=== PATIENT | male | born 1955 | race Caucasian/White ===

== ENCOUNTER 2021-12-03 08:00 | Outpatient (CLI) | payer MEDICARE, BC | END 2021-12-03 23:59 | disposition home or self-care (01) | LOC: LAB 08:00 | PROVIDERS: ATTEND Physician Assistant Medical | DX: J02.9 Acute pharyngitis, unspecified (principal); Z20.822 Contact with and (suspected) exposure to COVID-19 ==

== ENCOUNTER 2022-07-29 15:00 | Outpatient (CLI) | payer MEDICARE, BC | END 2022-07-29 15:01 | disposition home or self-care (01) | LOC: LAB.N 15:00 | PROVIDERS: ATTEND Urology | DX: R97.20 Elevated prostate specific antigen [PSA] (principal) | CPT/HCPCS: 36415; 84153 ==

== ENCOUNTER 2022-11-05 08:43 | Day surgery (SDC) | payer MEDICARE, BC ==
[2022-11-05] MEDS ORDERED: LACTATED RINGERS 1,000 ML IV ONE ×2 (09:08→11:00)
--- NOTE | 2022-11-05 09:50 | ANESTHESIA ---
Pre-Anesthesia VS, & Labs - Diagnosis SILENT REFLUX, POS COLOGUARD - Procedure EGD + COLONOSCOPY Vital Signs: Temp Pulse Resp BP Pulse Ox O2 Flow Rate 36.2 C L 106 H 18 123/91 H 98 11/05/22 09:08 11/05/22 09:08 11/05/22 09:08 11/05/22 09:08 11/05/22 09:08 Height: 5 ft 8 in Weight (kg): 75 kg Body Mass Index: 25.1 BMI Classification: Overweight - NPO >8 hours - Lab Results Lab results reviewed: Yes Home Medications and Allergies Home Medications: Ambulatory Orders Amitriptyline [Elavil] 75 mg PO HS 11/05/22 Bimatoprost 0.01% Ophth Dops [Lumigan 0.01% Ophth Drops] 1 drops EACHEYE DAILY 11/05/22 Finasteride [Proscar] 5 mg PO DAILY 11/05/22 Levothyroxine Sodium 50 mcg PO DAILY 11/05/22 Milnacipran HCl [Savella] 50 mg PO BID 11/05/22 Naltrexone HCl [Naltrex] 4.5 mg PO DAILY 11/05/22 Tizanidine HCl 2 mg PO TID PRN 11/05/22 Amitriptyline [Elavil] 75 mg PO HS 11/05/22 Bimatoprost 0.01% Ophth Dops [Lumigan 0.01% Ophth Drops] 1 drops EACHEYE DAILY 11/05/22 Finasteride [Proscar] 5 mg PO DAILY 11/05/22 Levothyroxine Sodium 50 mcg PO DAILY 11/05/22 Milnacipran HCl [Savella] 50 mg PO BID 11/05/22 Naltrexone HCl [Naltrex] 4.5 mg PO DAILY 11/05/22 Tizanidine HCl 2 mg PO TID PRN 11/05/22 Allergies/Adverse Reactions: Allergies Allergy/AdvReac Type Severity Reaction Status Date / Time doxycycline Allergy Severe Headache Verified 11/05/22 09:28 Tetracyclines Allergy Severe Headache Verified 11/05/22 09:28 fluroquinlone Allergy Severe Nausea Uncoded 11/05/22 09:29 Anes History & Medical History - Anesthetic History Anesthesia Complications: reports: No previous complications Family history of Anesthesia Complications: Denies Family history of Malignant Hyperthermia: Denies - Medical History Cardiovascular: reports: None Pulmonary: reports: None Gastrointestinal: reports: GERD (POSS) Musculoskeletal: reports: Fibromyalgia Endocrine/Autoimmune: reports: HyPOthyroidism Smoking Status: Never smoker Exam General: Alert, Oriented x3, Cooperative Dental: WNL Mouth Openin Fingerbreadth Neck Mobility: Normal Mallampati classification: II Thyromental Distance: 4-6 cm Respiratory: Lungs clear Cardiovascular: Regular rate Plan Anesthesia Type: General, MAC Consent for Procedure(s) Verified and Reviewed: Yes Code Status: Attempt Resuscitation ASA classification: 2-Mild systemic disease Is this case an emergency?: No
--- NOTE | 2022-11-05 09:58 | HISTORY & PHYSICAL EXAMINATION ---
Chief Complaint - Chief Complaint Chief Complaint: here for egd and colonoscopy History of Present Illness - History Obtained From Records Reviewed: yes History obtained from: pt Exam Limitations: none - History of Present Illness HPI Comment/Other: concern for silent reflux and positive cologuard. no upper or lower gi symptoms History - Past Medical History Cardiovascular: reports: None Respiratory: reports: None Endocrine/Autoimmune: reports: HyPOthyroidism GI: reports: GERD (POSS) : reports: None HEENT: reports: Glaucoma, Chronic sinusitis, Dental implants Psych: reports: Depression, Anxiety, Post traumatic stress disorder Musculoskeletal: reports: Fibromyalgia MRSA Hx?: No - Past Surgical History General: reports: Other Ortho: reports: Spine surgery Meds/Allgy - Home Medications Home Medications: Ambulatory Orders Medication Instructions Recorded Confirmed Amitriptyline [Elavil] 75 mg PO HS 11/05/22 11/05/22 Bimatoprost 0.01% Ophth Dops 1 drops EACHEYE DAILY 11/05/22 11/05/22 [Lumigan 0.01% Ophth Drops] Finasteride [Proscar] 5 mg PO DAILY 11/05/22 11/05/22 Levothyroxine Sodium 50 mcg PO DAILY 11/05/22 11/05/22 Milnacipran HCl [Savella] 50 mg PO BID 11/05/22 11/05/22 Naltrexone HCl [Naltrex] 4.5 mg PO DAILY 11/05/22 11/05/22 Tizanidine HCl 2 mg PO TID PRN 11/05/22 11/05/22 - Allergies Allergies/Adverse Reactions: Allergies Allergy/AdvReac Type Severity Reaction Status Date / Time doxycycline Allergy Severe Headache Verified 11/05/22 09:28 Tetracyclines Allergy Severe Headache Verified 11/05/22 09:28 fluroquinlone Allergy Severe Nausea Uncoded 11/05/22 09:29 Review of Systems - Other Findings Other Findings: 10 pt ros as above otherwise unremarkable Exam - Vital Signs Vital Signs: Vital Signs x48h Temp Pulse Resp BP Pulse Ox 11/05/22 09:08 36.2 C L 106 H 18 123/91 H 98 - Physical Exam General Appearance: positive: No acute distress, Alert Eyes Bilateral: positive: PERRL, EOMI, No scleral icterus ENT: positive: No signs of dehydration Neck: positive: No JVD, Trachea midline Respiratory: positive: No respiratory distress Cardiovascular: positive: Regular rate & rhythm Abdomen: positive: No distention Neurologic/Psychiatric: positive: Oriented x3 Conclusion/Plan - Problem List (1) Abnormal stool test Conclusion/Plan: plan colonoscopy and egd for concern silent reflux - Lab Results Lab results reviewed: Yes
[2022-11-05] MEDS ORDERED: PROPOFOL 500 MG/50 ML 500 MG/50 ML VIAL ONE (10:26)
[2022-11-05] MEDS ORDERED: PROPOFOL 200 MG/20 ML VIAL IVP ONE (10:26)
[2022-11-05 11:54] VITALS: BP 128/74; O2SAT 98
--- NOTE | 2022-11-05 13:30 | ANESTHESIA POST OP EVALUATION ---
Anesthesia Post Eval - Post Anesthesia Eval Vitals: Last Vital Signs Temp 36.0 C L 11/05/22 11:00 Pulse 74 11/05/22 11:36 Resp 14 11/05/22 11:36 BP 128/74 11/05/22 11:36 Pulse Ox 98 11/05/22 11:36 O2 Flow Rate CV Function Including HR & BP: Stable Pain Control: Satisfactory Nausea & Vomiting: Negative Mental Status: Baseline Respiratory Status: Airway Patent Hydration Status: Satisfactory Anesthesia Complications: None
== END 2022-11-05 08:44 | disposition home or self-care (01) ==
LOC: SDS 08:43
PROVIDERS: ATTEND Surgery
PROC: 0DB58ZX Excision of Esophagus, Via Natural or Artificial Opening Endoscopic, Diagnostic (ICD-10-PCS; 2022-11-05)
PROC: 0DB98ZX Excision of Duodenum, Via Natural or Artificial Opening Endoscopic, Diagnostic (ICD-10-PCS; principal; 2022-11-05 10:00)
PROC: 0DB68ZX Excision of Stomach, Via Natural or Artificial Opening Endoscopic, Diagnostic (ICD-10-PCS; 2022-11-05 10:00)
DX: R19.5 Other fecal abnormalities (principal); K21.9 Gastro-esophageal reflux disease without esophagitis; K29.50 Unspecified chronic gastritis without bleeding; K57.30 Diverticulosis of large intestine without perforation or abscess without bleeding
CPT/HCPCS: 43239; 45378; J7120

== ENCOUNTER 2022-11-24 15:52 | Outpatient (CLI) | payer MEDICARE, BC ==
[2022-11-24 18:04] LABS: CHOL/HDL RATIO 4.9 (<5.0); CHOLESTEROL 295 mg/dL; HDL CHOLESTEROL 60 mg/dL; LDL CHOLESTEROL,CALCULATED 217 mg/dL; LDL/HDL RATIO 3.6 (<3.6); TRIGLYCERIDES 91 mg/dL (48-352); VLDL CHOLESTEROL 18 mg/dL
== END 2022-11-24 15:53 | disposition home or self-care (01) ==
LOC: LAB.N 15:52
PROVIDERS: ATTEND Physician Assistant Medical
DX: E78.5 Hyperlipidemia, unspecified (principal)
CPT/HCPCS: 36415; 80061; 83721

== ENCOUNTER 2023-07-08 16:32 | Outpatient (CLI) | payer MEDICARE ==
[2023-07-08 20:43] LABS: BASOPHILS # (AUTO) 0.1 10^3/uL (0.0-0.1); BASOPHILS % (AUTO) 1.3 %; EOSINOPHILS # (AUTO) 0.1 10^3/uL (0.0-0.7); EOSINOPHILS % (AUTO) 1.1 %; HCT - HEMATOCRIT 42.4 % (42.0-52.0); HGB - HEMOGLOBIN 13.8 g/dL (14.0-18.0); LYMPHOCYTES # (AUTO) 1.7 10^3/uL (1.5-3.5); LYMPHOCYTES % (AUTO) 32.9 %; MEAN CORPUSCULAR HEMOGLOBIN 30.5 pg (27.0-31.0); MEAN CORPUSCULAR HGB CONC 32.5 g/dL (32.0-36.0); MEAN CORPUSCULAR VOLUME 93.8 fL (80.0-94.0); MEAN PLATELET VOLUME 9.1 fL (7.4-11.4); MONOCYTES # (AUTO) 0.4 10^3/uL (0.0-1.0); MONOCYTES % (AUTO) 7.8 %; NEUTROPHILS % (AUTO) 56.7 %; PLT - PLATELET COUNT 443 10^3/uL (130-450); RED BLOOD COUNT 4.52 10^6/uL (4.70-6.10); RED CELL DISTRIBUTION WIDTH 13.1 % (12.0-15.0); WHITE BLOOD COUNT 5.3 x10^3/uL (4.8-10.8)
[2023-07-08 21:12] LABS: THYROID STIMULATING HORMONE 1.69 uIU/mL (0.34-5.60)
[2023-07-08 21:46] LABS: ALBUMIN 4.2 g/dL (3.2-5.5); ALBUMIN/GLOBULIN RATIO 1.3 (1.0-2.2); ALKALINE PHOSPHATASE 118 IU/L (42-121); ALT ALANINE AMINOTRANSFERASE 62 IU/L (10-60); AST ASPARTATE AMINOTRANSFERASE 33 IU/L (10-42); BILIRUBIN,TOTAL 0.4 mg/dL (0.2-1.0); BUN - BLOOD UREA NITROGEN 17 mg/dL (6-20); CALCIUM 10.1 mg/dL (8.5-10.3); CARBON DIOXIDE - CO2 29 mmol/L (21-32); CHLORIDE 105 mmol/L (101-111); CHOL/HDL RATIO 3.8 (<5.0); CHOLESTEROL 235 mg/dL; GFR - MDRD 75 (>89); GLUCOSE 87 mg/dL (74-104); HDL CHOLESTEROL 62 mg/dL; LDL CHOLESTEROL,CALCULATED 153 mg/dL; LDL/HDL RATIO 2.5 (<3.6); POTASSIUM 4.4 mmol/L (3.5-4.5); SODIUM 142 mmol/L (135-145); TOTAL PROTEIN 7.4 g/dL (6.4-8.9); TRIGLYCERIDES 100 mg/dL (48-352); VLDL CHOLESTEROL 20 mg/dL
== END 2023-07-08 16:33 | disposition home or self-care (01) ==
LOC: LAB.N 16:32
PROVIDERS: ATTEND Physician Assistant Medical
DX: E78.5 Hyperlipidemia, unspecified (principal); E03.9 Hypothyroidism, unspecified; K21.9 Gastro-esophageal reflux disease without esophagitis
CPT/HCPCS: 36415; 80053; 80061; 83721; 84443; 85025

== ENCOUNTER 2023-08-10 14:10 | Outpatient (CLI) | payer MEDICARE ==
--- NOTE | 2023-08-11 00:45 | DEXA Report ---
PROCEDURE: Dexa Spine and/or Hip INDICATIONS: SCREENING FOR OSTEOPOROSIS TECHNIQUE: Dual energy x-ray absorptiometry (DEXA) was performed in the regions detailed below. COMPARISON: None. FINDINGS: Lumbar Spine: Bone Mineral Density 0.880 g/cm/cm,T score -2.8. Osteoporosis Left Femoral Neck: Bone Mineral Density 0.787 g/cm/cm, T score -2.2. Osteopenia Left Total Hip: Bone Mineral Density 0.932 g/cm/cm,T score -1.2. Osteopenia (T score greater or equal to -1.0: NORMAL) (T score from -1.1 to -2.4: OSTEOPENIA) (T score less than or equal to -2.5 to: OSTEOPOROSIS) IMPRESSION: Osteoporosis Patients with diagnosis of osteoporosis or osteopenia should have regular bone mineral density assess ment. For those eligible for Medicare, routine testing is allowed once every 2 years. Testing frequ ency can be increased for patients who have rapidly progressing disease or for those who are receivin g medical therapy to restore bone mass. Reviewed by: Moses Lopez MD on 08/10/2023 11:43 PM [facility] Approved by: Moses Lopez MD on 08/10/2023 11:43 PM [facility] Station ID: [id number]
== END 2023-08-10 14:11 | disposition home or self-care (01) ==
LOC: DI 14:10
PROVIDERS: ATTEND Physician Assistant Medical
DX: Z13.820 Encounter for screening for osteoporosis (principal); M81.0 Age-related osteoporosis without current pathological fracture